=== PATIENT | male | born 1960 | race Caucasian/White ===

== ENCOUNTER 2018-06-15 20:09 | Emergency (ER) | payer SELFPAY ==
[~2018-06-15] VITALS: Ht 180.3 cm; Wt 79.5 kg
[2018-06-15 20:46] VITALS: BP 158/105
== END 2018-06-15 21:52 | disposition left against medical advice (07) ==
LOC: EMS 20:09
DX: H57.13 Ocular pain, bilateral (principal); Z53.21 Procedure and treatment not carried out due to patient leaving prior to being seen by health care provider